=== PATIENT | female | born 1945 | race Caucasian/White ===

== ENCOUNTER 2020-07-21 11:27 | Outpatient (CLI) | payer MEDICARE, OTHER, SELFPAY ==
[2020-07-21 12:07] LABS: Hemoglobin A1C 5.7 % (<5.7)
== END 2020-07-21 11:28 | disposition home or self-care (01) ==
PROVIDERS: PCP Family Medicine; Visit Provider Orthopaedic Surgery
DX: E11.610 Type 2 diabetes mellitus with diabetic neuropathic arthropathy (principal); R73.9 Hyperglycemia, unspecified
CPT/HCPCS: 36415; 83036

== ENCOUNTER 2020-09-13 13:30 | Outpatient (CLI) | payer MEDICARE, OTHER, SELFPAY ==
--- NOTE | 2020-09-13 13:47 | ECG_ITS ---
Measurements Intervals [place] Rate: 46 P: CT: 0 QRS: 59 QRSD: 99 T: 23 QT: 440 QTc: 386 Interpretive Statements JUNCTIONAL RHYTHM BASELINE ARTIFACT- I, III, AVL, AVF ABNORMAL ECG Electronically Signed On 09-13-2020 14:04:22 CDT by Edward Soliz D.O.
[2020-09-13 14:55] LABS: Anion Gap 8 mmol/L (8-16); Blood Urea Nitrogen 22 mg/dL (7-17); Calcium 9.6 mg/dL (8.4-10.2); Carbon Dioxide 31 mmol/L (22-30); Chloride 85 mmol/L (98-107); Estimated Glomerular Filt Rate > 60; Glucose 124 mg/dL (65-110); Potassium 4.1 mmol/L (3.4-5.0); Sodium 124 mmol/L (137-145)
== END 2020-09-13 13:31 | disposition home or self-care (01) ==
LOC: ANHSURGERY 13:34
PROVIDERS: Anesthesiology; PCP Family Medicine; Visit Provider Orthopaedic Surgery
DX: E11.9 Type 2 diabetes mellitus without complications (principal); I10 Essential (primary) hypertension; Z01.818 Encounter for other preprocedural examination
CPT/HCPCS: 36415; 80048; 93005

== ENCOUNTER 2020-12-02 01:53 | Day surgery (SDC) | payer MEDICARE, OTHER, SELFPAY ==
[2020-09-10 08:35] VITALS: BMI 28.6
--- NOTE | 2020-09-14 11:01 | PM.IMHP ---
H&P: HPI History of Present Illness Date/Time: 09/14/20 11:01 Chief Complaint: Right foot pain and callus formation Narrative: 75-year-old woman with right 2nd hammertoe deformity and lateral midfoot bony prominence with ulceration over the 2nd toe and callus formation lateral foot. Conditions unchanged with custom inserts, accommodative shoe wear, wound management. Presents now for operative treatment. Review of Systems Constitutional: Constitutional: Denies fever(s) Eyes: Eyes: Denies blurry vision ENT: Reports Normal hearing present Cardiovascular: Cardiovascular: Denies chest pain and Denies dyspnea Respiratory: Respiratory: Denies dyspnea and Denies wheezing Gastrointestinal: Gastrointestinal: Denies abdominal pain Genitourinary: Genitourinary: Denies urinary urgency Musculoskeletal: Musculoskeletal: Reports as per HPI and Denies numbness Integumentary/Breasts: Skin/Breast: Denies changing lesions and Denies sores Neurologic: Reports Normal hearing present, Denies behavioral changes, Denies confusion, Denies numbness and Denies convulsions Psychiatric: Psychiatric: Denies behavioral changes, Denies confusion and Denies hallucinations Endocrine: Endocrine: Denies heat intolerance Hematologic/Lymphatic: Hematologic/Lymphatic: Denies easy bleeding Allergic/Immunologic: Allergic/Immunologic: Denies wheezing PMFSH Past Medical History Medical History Arthritis Callus of foot Clawtoe, acquired Exostosis of right foot 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 High cholesterol Hypertension Keloid 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 Osteoporosis Pes planus of right foot Seasonal allergies Sleep apnea Vision abnormalities Surgical History Surgical History History of toe surgery Great toe, 2018 Family History Family History Other Hypertension Social History Social History Smoking packs per day: 0.5 Smoking cigarettes per day: 10.0 Years smoked: 6 Smoking pack-years: 3.00 Smoking status: Former smoker Tobacco type: cigarettes Smoking end date: 08/12/69 Alcohol intake: current Drinks per week: 14 Alcohol use details: WINE Substance use: never Additional living arrangements comments: [facility] Spiritual care concerns: No Meds Home Medications and Allergies Home Medications Medication Instructions Recorded Confirmed Type aspirin 81 mg tablet,delayed 81 mg PO DAILY 10/30/19 09/10/20 History release atorvastatin 40 mg tablet 40 mg PO DAILY 10/30/19 09/10/20 History budesonide 0.5 mg/2 mL suspension 0.5 mg IRRIGATION DAILY PRN 10/30/19 09/10/20 History for nebulization calcium 600 mg-D3 800 unit-mag11 2 tablet PO DAILY 10/30/19 09/10/20 History 50 xk-jfar-tzvphg-wesley-s.borat tablet cetirizine 10 mg capsule 10 mg PO DAILY 10/30/19 09/10/20 History finasteride 1 mg tablet 1 mg PO DAILY 10/30/19 09/10/20 History ibuprofen 800 mg tablet 800 mg PO BID 10/30/19 09/10/20 History levothyroxine 50 mcg tablet 50 mcg PO DAILY 10/30/19 09/10/20 History metformin 500 mg tablet 500 mg PO HS 10/30/19 09/10/20 History metoprolol tartrate 50 mg tablet 50 mg PO QAM 10/30/19 09/10/20 History verapamil 240 mg 24 hr 240 mg PO BID 10/30/19 09/10/20 History capsule,extended release vitamin D3 800 unit-folic acid 1 1 cap PO DAILY 10/30/19 09/10/20 History mg-collagen,hydrolys 300 mg capsule chlorthalidone [Hygroton] 25 mg PO HS 09/10/20 09/10/20 History docusate sodium [Colace] 50 mg PO DAILY 09/10/20 09/10/20 History levocetirizine [Xyzal] 5 mg PO DAILY 09/10/20 09/10/20 History tynbgfinjljk-tvizljzy-tajgjk 1 tablet PO DAILY 09/10/20 09/10/20 History [Centrum Silver] polyethylene glycol 3350 [Miralax] 17 g PO DAILY PRN 09/10/20
[2020-11-30 15:27] VITALS: BMI 28.3
[2020-12-02] VITALS (10 sets, daily range): BP systolic 96–130; BP diastolic 53–65; PULSE 47–62; RESP 14–18; TEMP 36.6–36.7; O2SAT 95–100
--- NOTE | ~2020-12-02 | XR_ITS ---
EXAMINATION: XR surgery orthopedic DATE: 12/02/2020 08:32 INDICATION: Right foot arthrodesis TECHNIQUE: 4 fluoroscopic images of the right foot were obtained during procedure performed by Dr. Cian burris. Radiologist was not present for the imaging or procedure. The amount of fluoroscopy time used during this procedure was 0.1 minutes. COMPARISON: Radiograph dated 11/17/2020 FINDINGS: Images demonstrate interval second proximal interphalangeal joint arthrodesis with fixation device sp anning the joint space at the end of a subtle lucent tunnel extending across the distal phalanx and d istal portion of the middle phalanx. Alignment of the fixation appears near-anatomic. Valgus angulati on at the first interphalangeal joint with severe osteoarthritis. Unchanged mildly displaced intra-ar ticular fracture at the medial base of the fourth proximal phalanx where there is also mild valgus an gulation. Imaging of the midfoot demonstrates severe polyarticular osteoarthritis in the midfoot invo lving the second and third tarsal metatarsal and naviculocuneiform articulations. There is fragmentat ion of the dorsal aspect of the navicula. Moderate-sized plantar calcaneal spur. IMPRESSION: 1. Expected appearance of an instrumented second proximal interphalangeal joint arthrodesis. 2. Unchanged mildly displaced intra-articular fracture at the base of the fourth proximal phalanx. 3. 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 Reviewed, dictated and finalized at location A. IMPRESSION: 1. Expected appearance of an instrumented second proximal interphalangeal joint arthrodesis. 2. Unchanged mildly displaced intra-articular fracture at the base of the fourt h proximal phalanx. 3. 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
[2020-12-02] MEDS: ACETAMINOPHEN 500 MG TABLET 1000 MG PO (06:34)
[2020-12-02] MEDS: KETOROLAC 15 MG/ML VIAL (*BKC) IV PUSH (06:59)
--- NOTE | 2020-12-02 07:01 | WPDANESEPPF ---
Anes - Initial Pre Proc Eval Procedure: Operation Date: 12/02/20 07:30 Proposed Procedures p Right Second Toe Hammer Toe Correction, with Proximal Interphalangeal Arthrodesis and Excision Exostosis Right Lateral Foot - Bipin Leonard MD Date/Time: 12/02/20 07:01 Surgeon: Bipin Leonard MD Pre Op Diagnosis: right 2nd hammer toe/ r foot exotosis Patient Data Age: 75 Gender: F Height: 1.57 m Weight: 70.31 kg Allergies Allergy/AdvReac Type Severity Reaction Status Date / Time mold Allergy Unknown Sneezing Verified 12/02/20 06:31 codeine AdvReac Mild NAUSEA/CONS Verified 12/02/20 06:31 TIPATION Dust Allergy Unknown Sneezing Uncoded 12/02/20 06:31 Grass Allergy Unknown Sneezing Uncoded 12/02/20 06:31 Home Medications Medication Instructions Recorded Confirmed Type aspirin 81 mg tablet,delayed 81 mg PO DAILY 10/30/19 11/30/20 History release atorvastatin 40 mg tablet 40 mg PO DAILY 10/30/19 11/30/20 History budesonide 0.5 mg/2 mL suspension 0.5 mg IRRIGATION BID PRN 10/30/19 11/30/20 History for nebulization calcium 600 mg-D3 800 unit-mag11 2 tablet PO DAILY 10/30/19 11/30/20 History 50 wp-vhgk-iglaof-wesley-s.borat tablet finasteride 1 mg tablet 1 mg PO DAILY 10/30/19 11/30/20 History ibuprofen 800 mg tablet 800 mg PO PRN PRN 10/30/19 11/30/20 History levothyroxine 50 mcg tablet 50 mcg PO DAILY 10/30/19 11/30/20 History metformin 500 mg tablet 500 mg PO HS 10/30/19 11/30/20 History metoprolol tartrate 50 mg tablet 25 mg PO QAM 10/30/19 11/30/20 History verapamil 240 mg 24 hr 240 mg PO BID 10/30/19 11/30/20 History capsule,extended release vitamin D3 800 unit-folic acid 1 1 cap PO DAILY 10/30/19 11/30/20 History mg-collagen,hydrolys 300 mg capsule docusate sodium [Colace] 50 mg PO DAILY 09/10/20 11/30/20 History levocetirizine [Xyzal] 5 mg PO QPM 09/10/20 11/30/20 History ixbayjvkjshv-txwgdups-ursmgo 1 tablet PO DAILY 09/10/20 11/30/20 History [Centrum Silver] polyethylene glycol 3350 [Miralax] 17 g PO DAILY PRN 09/10/20 11/30/20 History Patient hx anesthesia problems: none Family hx anesthesia problems: none Results Review: All pre-operative results and documents have been reviewed as part of the pre-operative evaluation. 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 Osteoporosis Pes planus of right foot Seasonal allergies Sleep apnea Vision abnormalities Surgical History Surgical History History of toe surgery Great toe, 2018 Family History Family History Other Hypertension Social History Social History Smoking packs per day: 0.5 Smoking cigarettes per day: 10.0 Years smoked: 6 Smoking pack-years: 3.00 Smoking status: Former smoker Tobacco type: cigarettes Smoking end date: 08/12/69 Alcohol intake: current Drinks per week: 14 Alcohol use details: WINE Substance use: never Living arrangements: with family Additional living arrangements comments: [facility] Spiritual care concerns: No Anes - Eval Final PreProcedure Day of Procedure 12/02/20 07:01 Patient weight: overweight Heart: regular rate and rhythm Lungs: clear to auscultation Airway: Mallampati scale class II Neurological: alert and oriented Last oral intake: >/= 8 hours ASA classification: III Emergent: no Anesthetic plan: proceed Anesthesia type and monitoring: general LMA and standard monitoring Results Review: All pre-operative results and documents have been reviewed as part of the pre-operative evaluation. Informed Consent: The patient's anestheti
--- NOTE | 2020-12-02 07:06 | WPDHPUPDATE1 ---
History and Physical Update Update Date/Time: 12/02/20 07:06 History and Physical has been reviewed, including an updated exam of the patient. There are NO changes in the patient's condition. Risks, benefits, and alternatives have been discussed and questions answered. Patient agrees to proceed with procedure.
[2020-12-02] MEDS: LACTATED RINGERS 1,000 ML 30 ML IV CONT ×2 (07:12→08:34)
[2020-12-02 07:20] LABS: Glucose Point of Care 100 mg/dl (65-105)
[2020-12-02] MEDS: ceFAZolin 2 GM/D5W 50 ML 2 GM/50 ML BAG IVPB (07:28)
[2020-12-02 08:41] LABS: Glucose Point of Care 94 mg/dl (65-105)
--- NOTE | 2020-12-02 08:52 | P.OP_ITS ---
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 She has a 2nd hammertoe with ulceration over the dorsum and risk of infection. She has failed conservative treatment. Prominence of the lateral base of the 5th metatarsal also with preulcerative state. Presents for operative treatment. Description of Procedure What was done: Patient identified in the preoperative holding. Informed consent given. Operative extremity marked. Patient received intravenous antibiotics. Patient brought to the operating room where underwent general anesthetic by anesthesia team. Positioned supine on operating room table. Time-out performed confirming the patient, site of the surgery and the plan. Right foot prepped draped usual sterile surgical fashion using ChloraPrep skin solution. Foot and Ankle exsanguinated and calf tourniquet inflated to 225 mmHg. The exostosis was addressed 1st. Longitudinal incision made over the lateral base of the 5th metatarsal with a 15 blade knife. Hemostasis controlled electrocautery. Soft tissue was elevated off of the metatarsal bone in a full-thickness flap including the peroneal brevis insertion. Osteotome used to resect the base of the 5th metatarsal on the lateral and plantar aspect. Wound thoroughly irrigated antibiotic solution. Image intensification confirmed resection level. Peroneal insertion then repaired through drill holes in the base of the 5th metatarsal with 0 Vicryl interrupted suture. Subcutaneous tissue and fascia repaired with 0 Vicryl interrupted suture. Skin repaired with 3-0 Monocryl subcuticular interrupted suture and 4-0 nylon running suture. Second toe then addressed. Elliptical incision made over the dorsum of the proximal interphalangeal joint with a 15 blade knife. Hemostasis controlled electrocautery. Dorsal capsule excised. Collateral ligaments released. And of the proximal phalanx then resected with a bone cutter. Articular surface of the middle phalanx resected with a rongeur. Bone ends then coapted and fixed with the 14 mm hammertoe implant. Good alignment and compression noted. Image intensification confirmed placement. Wound irrigated and the dorsal extensor mechanism repaired with 3-0 Monocryl interrupted suture. Skin repaired with 4-0 nylon interrupted suture. Tourniquet released. Good capillary refill noted. Sterile dressing applied. The patient was then woken from anesthesia, extubated and taken to the recovery room in stable condition. All sponge, needle, instrument counts were correct at the end of the case. Implants Arthrex 14 mm hammertoe implant Estimated Blood Loss 5 Tourniquet Time 40 Drains No Packing No Pathology none sent Complications None Condition stable Disposition PACU
== END 2020-12-02 10:31 | disposition home or self-care (01) ==
PROVIDERS: PCP Family Medicine; Visit Provider Orthopaedic Surgery
PROC: (CPT 28285; principal; 2020-12-02 07:30)
DX: M20.41 Other hammer toe(s) (acquired), right foot (principal); M89.8X7 Other specified disorders of bone, ankle and foot; I10 Essential (primary) hypertension; E78.00 Pure hypercholesterolemia, unspecified; G47.30 Sleep apnea, unspecified; E11.610 Type 2 diabetes mellitus with diabetic neuropathic arthropathy; Z79.84 Long term (current) use of oral hypoglycemic drugs; Z79.82 Long term (current) use of aspirin; Z87.891 Personal history of nicotine dependence
CPT/HCPCS: 28285; 28104; 82948; A9270; J0690; J1885; J2270; J7120

== ENCOUNTER → 2022-04-25 10:59 | Outpatient (CLI) | payer MEDICARE, OTHER, SELFPAY ==
--- NOTE | ~2022-04-25 | XR_ITS ---
AP view of the pelvis and AP and lateral views of the lateral hips Clinical history: Pain Findings: No acute fracture or dislocation is seen. Osseous alignment is anatomic. Bilateral hip and SI joint spaces are preserved. Soft tissues are unremarkable. Impression: No significant abnormality is seen. Reviewed, dictated and finalized at location . Impression: No significant abnormality is seen.
== END ==
PROVIDERS: PCP Family Medicine; Visit Provider Physical Medicine & Rehabilitation
DX: M16.9 Osteoarthritis of hip, unspecified (principal)
CPT/HCPCS: 73521